=== PATIENT | male | born 1965 | race Hispanic/Latino ===

== ENCOUNTER → 2025-06-13 | Day surgery (SDC) | payer MEDICARE ==
[2025-06-05 11:26] LABS: INR 1.02
[2025-06-05 11:35] LABS: EST GLOMERULAR FILTRATION RATE 54.0 ML/MIN (>=60)
[2025-06-05 12:48] LABS: BASOPHILS % 1.2 % (0.0-1.0); EOSINOPHILS % 6.2 % (0.0-6.0); LYMPHOCYTES % 29.7 % (18.0-39.1); MONOCYTES % 8.2 % (4.4-11.3); NEUTROPHILS % 54.1 % (38.7-80.0); RED CELL DISTRIBUTION WIDTH 14.0 % (11.7-14.4)
[~2025-06-13] MED LIST: ACETYLCYST200 MG/1 M NEB; ALIGN4 MG PO; ASPIRIN81 MG PO; BENZONATATE100 MG PO; COMBIVENT RESPIM4 GM IH; FEROSUL325 MG PO; FLUDROCORTISON0.1 MG PO; HUMALOG MI100 UNIT/2 SQ; IRBESARTAN150 MG PO; LACTATED RINGER'S 1,000 ML ONE; LEVAQUIN500 MG PO; LEVOCETIRIZINE D5 MG PO; LEXAPRO10 MG PO; LIDOCAINE HCL 2% LOCAL INJ 5 ML SDV VIAL INJ ONE; LOKELMA10 GM PO; METFORMIN HCL500 MG PO; METOPROLOL SUCC50 MG PO; MYCOPHENOLATE250 MG PO; NOVOLOG100 UNIT/1 SC; OLANZAPINE5 MG PO; PROCTOZONE TOP; PROPOFOL IV EMULSION 10 MG/ML 20 ML VIAL ONE; RENA-VITE TABL0.8 MG PO; SENNA LAX8.6 MG PO; TACROLIMUS1 MG PO; VITAMIN D250 MCG PO
[2025-06-13 08:25] VITALS: TEMP 97.6
[2025-06-13 08:45] VITALS: BP 131/65; PULSE 63; RESP 16; O2SAT 100
== END | disposition home or self-care (01) ==
LOC: OR 05:48
PROVIDERS: ATTEND Internal Medicine Gastroenterology
DX: Z12.11 Encounter for screening for malignant neoplasm of colon (principal); K64.8 Other hemorrhoids; Z94.4 Liver transplant status; I10 Essential (primary) hypertension; E11.9 Type 2 diabetes mellitus without complications; Z01.810 Encounter for preprocedural cardiovascular examination; Z01.812 Encounter for preprocedural laboratory examination; Z79.82 Long term (current) use of aspirin; Z79.4 Long term (current) use of insulin; Z79.899 Other long term (current) drug therapy; Z68.22 Body mass index [BMI] 22.0-22.9, adult; Z93.0 Tracheostomy status; Z87.891 Personal history of nicotine dependence
CPT/HCPCS: 36415 ×2; 80053; 82948; 84132; 85025; 85610; 85730; 93005; G0121; J2003; J2704; J7121; 45378